=== PATIENT | male | born 2000 | race African-American/Black ===

== ENCOUNTER 2021-08-19 15:08 | Emergency (ER) | payer BC ==
[2021-08-19] MEDS ORDERED: Sodium Chloride 0.9% 10 ML Syringe FLUSH PRN (15:10)
[2021-08-19] MEDS ORDERED: Sodium Chloride 0.9% 2.5 ML Syringe FLUSH PRN (15:10)
[2021-08-19] MEDS ORDERED: Sodium Chloride 0.9% 1,000 ML IV ONE (15:10)
--- NOTE | 2021-08-19 15:13 | EDM.PDOC ---
ED HPI GENERAL MEDICAL PROBLEM - General Stated Complaint: CHEST PAIN Time Seen by Provider: 08/19/21 15:09 Source of Information: Reports: Patient History Limitations: Reports: No Limitations - History of Present Illness INITIAL COMMENTS - FREE TEXT/NARRATIVE: HISTORY AND PHYSICAL: History of present illness: Patient is a 21-year-old male who presents to the emergency room with complaints of left sided chest pain. He states he has had some dull intermittent spasms in his right chest/shoulder since he recovered from COVID-19 2 weeks ago. Patient states he had COVID-19 approximately 1 month ago, symptoms of myalgias, fatigue and generalized weakness. Quarantined for 2 weeks and since has felt improved. This morning at 0700 he was playing basketball when he developed left anterior chest pain that worsens with taking deep breaths, palpation, and movement of the neck/left shoulder. Patient denies any fever, chills, headache, change in vision, syncope or near syncope. Denies any back pain, shortness of breath or cough. Denies any abdominal pain, nausea, vomiting, diarrhea, constipation or dysuria. Has not noted any blood in urine or stool. Patient has been eating and drinking appropriately. He denies any alcohol or drug use. Review of systems: As per history of present illness and below otherwise all systems reviewed and negative. Past medical history: As per history of present illness and as reviewed below otherwise noncontributory. Surgical history: As per history of present illness and as reviewed below otherwise noncontributory. Social history: See social history for further information Family history: As per history of present illness and as reviewed below otherwise noncontributory. Physical exam: General: Well developed and well nourished 21 year old black male. Alert and orientated x 3. Nontoxic in appearance and in no acute distress. Vital signs are stable and have been reviewed by me. Nursing notes were reviewed. HEENT: Atraumatic, normocephalic, pupils equal and reactive bilaterally, negative for conjunctival pallor or scleral icterus, mucous membranes moist, trachea midline. No drooling or trismus noted. No meningeal signs. No hot potato voice noted. Lungs: Clear to auscultation bilaterally. No wheezes, rales, or rhonchi. Chest tender and pain is reproducible. Normal work of breathing, no accessory muscles used. Heart: S1S2, regular rate and rhythm without overt murmur, gallops, or rubs. No JVD. No peripheral edema Abdomen: Soft, nondistended, nontender. Negative for masses or costovertebral tenderness. Skin: Intact, warm, dry. No lesions or rashes noted. Hematologic: No petechiae or purpra. Mucosa appropriate color and normal nail bed color and refill. Extremities: Atraumatic, moves all extremities per self without difficulty or deficits, negative for cords or calf pain. Neurovascular unremarkable. Neuro: Awake, alert, oriented. Cranial nerves II through XII unremarkable. Cerebellum unremarkable. Motor and sensory unremarkable throughout. Exam nonfocal. Psychiatric: Mood and affect are appropriate. Normal thought process. Answering questions appropriately. Please note that the patient was seen and evaluated during the 2019 SARS-CoV-2 novel coronavirus pandemic period. Community viral transmission is ongoing at time of this encounter and the emergency department is operating under pandemic response procedures. Medical Decision Making: Patient is a 21 year old male who presents to the ED with chest pain that started at 0700 today while playing basketball. Pain is exacerbated with movement, deep breathes and palpation he states he has had mild chest spasms since recovering from COVID 2 weeks ago. He states he was adopted, unsure of his full health history, but has been healthy without medical problems. Patients vital signs are within normal limits. He has increased pain with any type of movement. Will do chest x-ray, EKG and cardiac work-up. EKG shows some ST elevated concerning for pericarditis. Toradol and NS given. Dr Contreras was directly involved in this case with me. Chest x-ray is unremarkable. Patient's troponin is elevated; unconcerning for ischemia. Will repeat a troponin at 2 hour mio and get a CT of the chest due to his recent COVID and current complaints. Repeat troponin has come down. CT chest with angiograph shows no pulmonary artery filling defects (no PE). Normal heart size with no pericardial fluid or mediastinal adenopathy. No pulmonary consolidation. No nodules or pleural fluid. Minimal focal area of emphysema in the right lower lobe. I did speak with Dr. Mohamud, exploration driller at [facility] about this patient's ER visit, lab values (troponins), chest CT, chest x-ray and recent illness. He agrees that this patient sounds like pericarditis and is safe to be discharged to home with close follow-up with his primary care provider and/or exploration driller. I have talked with the patient about today's findings, in addition to providing specific details for plan of care. Reassessment at the time of disposition demonstrates that the patient is in no acute distress. Patient is pain-free at this time. The patient is stable for discharge, counseling was provided and we discussed in great detail signs and symptoms that would prompt them to return to the Emergency Department. We did put him on the follow-up list with cardiology and give follow-up phone numbers to him and his significant other at bedside. Medication, follow up and supportive care measures were reviewed and discussed. Voices understanding and is agreeable to plan of care. Denies any further questions or concerns at this time. Diagnostics: CBC, CMP, Troponin, EKG, CXR Therapeutics: IV fluids, Toradol Prescription: Ibuprofen Impression: Pericarditis Plan: 1. You were evaluated today on an emergent basis. Your labs and imaging show inflammation of the pericardium. I would like you to continue monitoring your symptoms closely and follow-up with your primary care provider next week for reevaluation. They may want to do echocardiogram for further cardiac work-up if symptoms continue. 2. Please take Ibuprofen routinely over the next week. Take Ibuprofen 600mg with food three times daily. 3. If your symptoms should worsen, new symptoms develop or any of the signs and symptoms we discussed should arise please return to the emergency room or call 911 (if needed). Definitive disposition and diagnosis as appropriate pending reevaluation and review of above. Bilateral Chest Pain Score (Numeric/FACES): 10 - Related Data Allergies Allergy/AdvReac Type Severity Reaction Status Date / Time iodine Allergy Cannot Verified 08/19/21 15:13 Remember Home Meds: Home Meds Ibuprofen [Ibu] 600 mg PO TID PRN #30 tablet 08/19/21 [Rx] Magnesium 1 dose PO DAILY 08/19/21 [History] ED ROS GENERAL - Review of Systems Review Of Systems: Comprehensive ROS is negative, except as noted in HPI. ED EXAM, GENERAL - Physical Exam Exam: See Below (See dictation) Course - Vital Signs Last Recorded V/S: Last Vital Signs Temp 98.2 F 08/19/21 15:14 Pulse 64 08/19/21 16:35 Resp 17 08/19/21 16:35 BP 107/62 08/19/21 16:35 Pulse Ox 100 08/19/21 16:35 - Orders/Labs/Meds Orders: Active Orders 24 hr Category Date Time Status Sodium Chloride 0.9% [Saline Flush] Med 08/19/21 15:10 Active 10 ml FLUSH ASDIRECTED PRN Sodium Chloride 0.9% [Saline Flush] Med 08/19/21 15:10 Active 2.5 ml FLUSH ASDIRECTED PRN Saline Lock Insert [OM.PC] Stat Oth 08/19/21 15:10 Ordered Medication Orders Sodium Chloride (Sodium Chloride 0.9% 10 Ml Syringe) 10 ml FLUSH ASDIRECTED PRN PRN Reason: Keep Vein Open Last Admin: 08/19/21 15:40 Dose: 10 ml Documented by: JERALD Sodium Chloride (Sodium Chloride 0.9% 2.5 Ml Syringe) 2.5 ml FLUSH ASDIRECTED PRN PRN Reason: Keep Vein Open Last Admin: 08/19/21 15:40 Dose: 2.5 ml Documented by: JERALD Labs: Laboratory Tests 08/19/21 08/19/21 08/19/21 Range/Units 15:35 15:35 15:35 WBC 10.10 (4.0-11.0) K/uL RBC 4.81 (4.50-5.90) M/uL Hgb 13.2 (13.0-17.0) g/dL Hct 37.9 L (38.0-50.0) % MCV 78.8 L (80.0-98.0) fL MCH 27.4 (27.0-32.0) pg MCHC 34.8 (31.0-37.0) g/dL RDW Std Deviation 38.3 (28.0-62.0) fl RDW Coeff of Neo 13 (11.0-15.0) % Plt Count 192 (150-400) K/uL MPV 10.20 (7.40-12.00) fL Neut % (Auto) 69.0 (48.0-80.0) % Lymph % (Auto) 18.9 (16.0-40.0) % Callahan % (Auto) 5.3 (0.0-15.0) % Eos % (Auto) 6.7 (0.0-7.0) % Baso % (Auto) 0.1 (0.0-1.5) % Neut # (Auto) 7.0 H (1.4-5.7) K/uL Lymph # (Auto) 1.9 (0.6-2.4) K/uL Callahan # (Auto) 0.5 (0.0-0.8) K/uL Eos # (Auto) 0.7 (0.0-0.7) K/uL Baso # (Auto) 0.0 (0.0-0.1) K/uL Nucleated RBC % 0.0 /100WBC Nucleated RBCs # 0 K/uL ESR 4 (0-14) mm/hr Sodium 139 (136-148) mmol/L Potassium 4.6 (3.5-5.1) mmol/L Chloride 104 (98-107) mmol/L Carbon Dioxide 26.2 (21.0-32.0) mmol/L BUN 19 H (7.0-18.0) mg/dL Creatinine 1.5 H (0.8-1.3) mg/dL Est Cr Clr Drug Dosing 67.90 mL/min Estimated GFR (MDRD) > 60.0 ml/min Glucose 106 (74-106) mg/dL Calcium 9.7 (8.5-10.1) mg/dL Magnesium (1.8-2.4) mg/dL Total Bilirubin 0.6 (0.2-1.0) mg/dL AST 29 (15-37) IU/L ALT 39 (14-63) IU/L Alkaline Phosphatase 72 (46-116) U/L Troponin I 0.066 H* (0.000-0.056) ng/mL C-Reactive Protein (0.00-0.90) mg/dL Total Protein 8.1 (6.4-8.2) g/dL Albumin 4.2 (3.4-5.0) g/dL Globulin 3.9 (2.6-4.0) g/dL Albumin/Globulin Ratio 1.1 (0.9-1.6) TSH, Ultra Sensitive (0.36-3.74) uIU/mL Urine Color Urine Appearance Urine pH (5.0-8.0) Ur Specific Carver (1.001-1.035) Urine Protein (NEGATIVE) mg/dL Urine Glucose (UA) (NEGATIVE) mg/dL Urine Ketones (NEGATIVE) mg/dL Urine Occult Blood (NEGATIVE) Urine Nitrite (NEGATIVE) Urine Bilirubin (NEGATIVE) Urine Urobilinogen (<2.0) EU/dL Ur Leukocyte Esterase (NEGATIVE) Urine Opiates Screen (NEGATIVE) Ur Oxycodone Screen (NEGATIVE) Urine Methadone Screen (NEGATIVE) Ur Barbiturates Screen (NEGATIVE) Ur Phencyclidine Scrn (NEGATIVE) Ur Amphetamine Screen (NEGATIVE) U Methamphetamines Scrn (NEGATIVE) U Benzodiazepines Scrn (NEGATIVE) U Cocaine Metab Screen (NEGATIVE) U Marijuana (THC) Screen (NEGATIVE) 08/19/21 08/19/21 08/19/21 Range/Units 15:35 15:35 17:00 WBC (4.0-11.0) K/uL RBC (4.50-5.90) M/uL Hgb (13.0-17.0) g/dL Hct (38.0-50.0) % MCV (80.0-98.0) fL MCH (27.0-32.0) pg MCHC (31.0-37.0) g/dL RDW Std Deviation (28.0-62.0) fl RDW Coeff of Neo (11.0-15.0) % Plt Count (150-400) K/uL MPV (7.40-12.00) fL Neut % (Auto) (48.0-80.0) % Lymph % (Auto) (16.0-40.0) % Callahan % (Auto) (0.0-15.0) % Eos % (Auto) (0.0-7.0) % Baso % (Auto) (0.0-1.5) % Neut # (Auto) (1.4-5.7) K/uL Lymph # (Auto) (0.6-2.4) K/uL Callahan # (Auto) (0.0-0.8) K/uL Eos # (Auto) (0.0-0.7) K/uL Baso # (Auto) (0.0-0.1) K/uL Nucleated RBC % /100WBC Nucleated RBCs # K/uL ESR (0-14) mm/hr Sodium (136-148) mmol/L Potassium (3.5-5.1) mmol/L Chloride (98-107) mmol/L Carbon Dioxide (21.0-32.0) mmol/L BUN (7.0-18.0) mg/dL Creatinine (0.8-1.3) mg/dL Est Cr Clr Drug Dosing mL/min Estimated GFR (MDRD) ml/min Glucose (74-106) mg/dL Calcium (8.5-10.1) mg/dL Magnesium 2.1 (1.8-2.4) mg/dL Total Bilirubin (0.2-1.0) mg/dL AST (15-37) IU/L ALT (14-63) IU/L Alkaline Phosphatase (46-116) U/L Troponin I (0.000-0.056) ng/mL C-Reactive Protein <0.20 (0.00-0.90) mg/dL Total Protein (6.4-8.2) g/dL Albumin (3.4-5.0) g/dL Globulin (2.6-4.0) g/dL Albumin/Globulin Ratio (0.9-1.6) TSH, Ultra Sensitive 0.85 (0.36-3.74) uIU/mL Urine Color YELLOW Urine Appearance CLEAR Urine pH 6.0 (5.0-8.0) Ur Specific Carver >= 1.030 (1.001-1.035) Urine Protein NEGATIVE (NEGATIVE) mg/dL Urine Glucose (UA) NEGATIVE (NEGATIVE) mg/dL Urine Ketones 15 H (NEGATIVE) mg/dL Urine Occult Blood NEGATIVE (NEGATIVE) Urine Nitrite NEGATIVE (NEGATIVE) Urine Bilirubin NEGATIVE (NEGATIVE) Urine Urobilinogen 0.2 (<2.0) EU/dL Ur Leukocyte Esterase NEGATIVE (NEGATIVE) Urine Opiates Screen (NEGATIVE) Ur Oxycodone Screen (NEGATIVE) Urine Methadone Screen (NEGATIVE) Ur Barbiturates Screen (NEGATIVE) Ur Phencyclidine Scrn (NEGATIVE) Ur Amphetamine Screen (NEGATIVE) U Methamphetamines Scrn (NEGATIVE) U Benzodiazepines Scrn (NEGATIVE) U Cocaine Metab Screen (NEGATIVE) U Marijuana (THC) Screen (NEGATIVE) 08/19/21 08/19/21 Range/Units 17:00 17:15 WBC (4.0-11.0) K/uL RBC (4.50-5.90) M/uL Hgb (13.0-17.0) g/dL Hct (38.0-50.0) % MCV (80.0-98.0) fL MCH (27.0-32.0) pg MCHC (31.0-37.0) g/dL RDW Std Deviation (28.0-62.0) fl RDW Coeff of Neo (11.0-15.0) % Plt Count (150-400) K/uL MPV (7.40-12.00) fL Neut % (Auto) (48.0-80.0) % Lymph % (Auto) (16.0-40.0) % Callahan % (Auto) (0.0-15.0) % Eos % (Auto) (0.0-7.0) % Baso % (Auto) (0.0-1.5) % Neut # (Auto) (1.4-5.7) K/uL Lymph # (Auto) (0.6-2.4) K/uL Callahan # (Auto) (0.0-0.8) K/uL Eos # (Auto) (0.0-0.7) K/uL Baso # (Auto) (0.0-0.1) K/uL Nucleated RBC % /100WBC Nucleated RBCs # K/uL ESR (0-14) mm/hr Sodium (136-148) mmol/L Potassium (3.5-5.1) mmol/L Chloride (98-107) mmol/L Carbon Dioxide (21.0-32.0) mmol/L BUN (7.0-18.0) mg/dL Creatinine (0.8-1.3) mg/dL Est Cr Clr Drug Dosing mL/min Estimated GFR (MDRD) ml/min Glucose (74-106) mg/dL Calcium (8.5-10.1) mg/dL Magnesium (1.8-2.4) mg/dL Total Bilirubin (0.2-1.0) mg/dL AST (15-37) IU/L ALT (14-63) IU/L Alkaline Phosphatase (46-116) U/L Troponin I 0.056 (0.000-0.056) ng/mL C-Reactive Protein (0.00-0.90) mg/dL Total Protein (6.4-8.2) g/dL Albumin (3.4-5.0) g/dL Globulin (2.6-4.0) g/dL Albumin/Globulin Ratio (0.9-1.6) TSH, Ultra Sensitive (0.36-3.74) uIU/mL Urine Color Urine Appearance Urine pH (5.0-8.0) Ur Specific Carver (1.001-1.035) Urine Protein (NEGATIVE) mg/dL Urine Glucose (UA) (NEGATIVE) mg/dL Urine Ketones (NEGATIVE) mg/dL Urine Occult Blood (NEGATIVE) Urine Nitrite (NEGATIVE) Urine Bilirubin (NEGATIVE) Urine Urobilinogen (<2.0) EU/dL Ur Leukocyte Esterase (NEGATIVE) Urine Opiates Screen NEGATIVE (NEGATIVE) Ur Oxycodone Screen NEGATIVE (NEGATIVE) Urine Methadone Screen NEGATIVE (NEGATIVE) Ur Barbiturates Screen NEGATIVE (NEGATIVE) Ur Phencyclidine Scrn NEGATIVE (NEGATIVE) Ur Amphetamine Screen NEGATIVE (NEGATIVE) U Methamphetamines Scrn NEGATIVE (NEGATIVE) U Benzodiazepines Scrn NEGATIVE (NEGATIVE) U Cocaine Metab Screen NEGATIVE (NEGATIVE) U Marijuana (THC) Screen NEGATIVE (NEGATIVE) Meds: Medications Generic Name Dose Route Start Last Admin Trade Name Freq PRN Reason Stop Dose Admin Sodium Chloride 10 ml 08/19/21 15:10 08/19/21 15:40 Sodium Chloride 0.9% 10 Ml Syringe FLUSH 10 ml ASDIRECTED PRN Administration Keep Vein Open Sodium Chloride 2.5 ml 08/19/21 15:10 08/19/21 15:40 Sodium Chloride 0.9% 2.5 Ml Syringe FLUSH 2.5 ml ASDIRECTED PRN Administration Keep Vein Open Discontinued Medications Generic Name Dose Route Start Last Admin Trade Name Freq PRN Reason Stop Dose Admin Aspirin 324 mg 08/19/21 16:19 08/19/21 16:33 Aspirin 81 Mg Tab.Chew PO 08/19/21 16:20 324 mg ONETIME ONE Administration Sodium Chloride 1,000 mls @ 999 mls/hr 08/19/21 15:10 08/19/21 15:40 Normal Saline IV 08/19/21 16:10 999 mls/hr STAT ONE Administration Iopamidol 100 ml 08/19/21 17:44 08/19/21 17:44 Iopamidol 755 Mg/Ml 500 Ml Multipack Bottle IVPUSH 08/19/21 17:45 100 ml ONETIME STA Administration Ketorolac Tromethamine 30 mg 08/19/21 15:21 08/19/21 15:40 Ketorolac 30 Mg/Ml Sdv IVPUSH 08/19/21 15:22 30 mg ONETIME ONE Administration Morphine Sulfate 2 mg 08/19/21 17:56 08/19/21 19:01 Morphine 2 Mg/Ml Syringe IVPUSH 08/19/21 17:57 2 mg ONETIME ONE Administration Departure - Departure Time of Disposition: 18:56 Disposition: Home, Self-Care 01 Clinical Impression: Pericarditis Qualifiers: Pericarditis type: unspecified type Chronicity: acute Qualified Code(s): I30.9 - Acute pericarditis, unspecified - Discharge Information Prescriptions: Ibuprofen [Ibu] 600 mg PO TID PRN #30 tablet PRN Reason: Pain Instructions: Pericarditis Referrals: PCP,None [Primary Care Provider] - Forms: ED Department Discharge Additional Instructions: The following information is given to patients seen in the emergency department who are being discharged to home. This information is to outline your options for follow-up care. We provide all patients seen in our emergency department with a follow-up referral. The need for follow-up, as well as the timing and circumstances, are variable depending upon the specifics of your emergency department visit. If you don't have a primary care physician on staff, we will provide you with a referral. We always advise you to contact your personal physician following an emergency department visit to inform them of the circumstance of the visit and for follow-up with them and/or the need for any referrals to a consulting specialist. The emergency department will also refer you to a specialist when appropriate. This referral assures that you have the opportunity for follow-up care with a specialist. All of these measure are taken in an effort to provide you with optimal care, which includes your follow-up. Under all circumstances we always encourage you to contact your private physician who remains a resource for coordinating your care. When calling for follow-up care, please make the office aware that this follow-up is from your recent emergency room visit. If for any reason you are refused follow-up, please contact the [facility] Emergency Department at and asked to speak to the emergency department charge nurse. [facility] [address] [place] [address] [facility] [address] [place] [address] Thank you for choosing the [facility] emergency department in [place] for your medical needs today. It was a pleasure caring for you. Today you were seen in the emergency department for chest pain. 1. You were evaluated today on an emergent basis. Your labs and imaging show inflammation of the pericardium. I would like you to continue monitoring your symptoms closely and follow-up with your primary care provider next week for reevaluation. They may want to do echocardiogram for further cardiac work-up if symptoms continue. 2. Please take Ibuprofen routinely over the next week. Take Ibuprofen 600mg with food three times daily. 3. If your symptoms should worsen, new symptoms develop or any of the signs and symptoms we discussed should arise please return to the emergency room or call 911 (if needed). Sepsis Event Note (ED) - Focused Exam Vital Signs: Vital Signs Temp Pulse Resp BP Pulse Ox 08/19/21 16:35 64 17 107/62 100 08/19/21 15:14 98.2 F 62 16 118/69 99 - My Orders Last 24 Hours: My Active Orders 08/19/21 15:10 Sodium Chloride 0.9% [Saline Flush] 10 ml FLUSH ASDIRECTED PRN Sodium Chloride 0.9% [Saline Flush] 2.5 ml FLUSH ASDIRECTED PRN Saline Lock Insert [OM.PC] Stat - Assessment/Plan Last 24 Hours: My Active Orders 08/19/21 15:10 Sodium Chloride 0.9% [Saline Flush] 10 ml FLUSH ASDIRECTED PRN Sodium Chloride 0.9% [Saline Flush] 2.5 ml FLUSH ASDIRECTED PRN Saline Lock Insert [OM.PC] Stat
[2021-08-19] MEDS ORDERED: Ketorolac 30 MG/ML SDV IVPUSH ONE (15:21)
--- NOTE | 2021-08-19 16:06 | PCM.EKG ---
#1 Interpretation EKG Date: 08/19/21 Time: 16:06 EKG Interpretation Comments: Sinus rhythm with rate of 66 normal intervals and axis there is minimal diffuse ST elevation throughout all leads consistent with pericarditis not concerning for acute ischemia
[2021-08-19 16:14] LABS: BLOOD UREA NITROGEN,BUN 19 mg/dL (7.0-18.0); CARBON DIOXIDE,CO2 26.2 mmol/L (21.0-32.0); CHLORIDE,CL 104 mmol/L (98-107); GLUCOSE RANDOM 106 mg/dL (74-106); POTASSIUM,K 4.6 mmol/L (3.5-5.1); SODIUM,NA 139 mmol/L (136-148)
[2021-08-19] MEDS ORDERED: Aspirin 81 MG Tab.Chew PO ONE (16:19)
--- NOTE | 2021-08-19 16:26 | CR ---
INDICATION: Chest pain. TECHNIQUE: Chest 1 view. COMPARISON: None FINDINGS: Cardiovascular and mediastinum: Heart size and vasculature are normal in caliber and appearance. Mediastinum is within normal limits. Lungs and pleural space: Lungs are clear. No sign of infiltrate or mass. No sign of pleural effusion. No pneumothorax. Bones and soft tissues: No significant findings. IMPRESSION: Unremarkable chest. Dictated by Kenn Norwood MD @ 08/19/2021 4:26:08 PM (Electronically Signed)
[2021-08-19] MEDS ORDERED: Iopamidol 755 MG/ML 500 ML Multipack Bottle IVPUSH STA (17:44)
[2021-08-19] MEDS ORDERED: Morphine 2 MG/ML SYRINGE IVPUSH ONE (17:56)
--- NOTE | 2021-08-19 18:20 | CT ---
INDICATION: Chest pain TECHNIQUE : CT scan of the chest. CTA PE protocol. IV contrast. 100 cc Isovue intravenous FINDINGS: Pulmonary arteries:No pulmonary artery filling defects. Heart/mediastinum:Normal heart size with no pericardial fluid or mediastinal adenopathy. Lungs and pleura:No pulmonary consolidation. No nodules or pleural fluid. Minimal focal area of emphysema in the right lower lobe. Abdomen/skeletal:Unremarkable. IMPRESSION: 1. No signs for acute pulmonary embolus. 2. Nonspecific subsegmental area of incidental emphysema in the right lower lobe possibly developmental or congenital. Doubtful clinical significance. Please note that all CT scans at this facility use dose modulation, iterative reconstruction, and/or weight-based dosing when appropriate to reduce radiation dose to as low as reasonably achievable. Dictated by Jayant Urbano MD @ 08/19/2021 6:17:47 PM (Electronically Signed)
--- NOTE | 2021-08-19 18:32 | PCM.EKG ---
#1 Interpretation EKG Date: 08/19/21 Time: 18:31 EKG Interpretation Comments: Sinus rhythm rate of 66 ST elevation diffuse suggests acute pericarditis.
== END 2021-08-19 19:10 | disposition home or self-care (01) ==
LOC: MW.ED 15:08
DX: I30.9 Acute pericarditis, unspecified (principal); Z88.8 Allergy status to other drugs, medicaments and biological substances
CPT/HCPCS: 36415; 71045; 71275; 80053; 80305; 81003; 83735; 84443; 84484; 85025; 85652; 86140; 93005; 96374; 96375; 99285; A9270; J1885; J2270; J7030; Q9967

== ENCOUNTER 2021-11-25 20:27 | Emergency (ER) | payer BC ==
--- NOTE | 2021-11-25 20:29 | EDM.PDOC ---
ED HPI GENERAL MEDICAL PROBLEM - General Stated Complaint: CHEST PAIN Time Seen by Provider: 11/25/21 20:27 Source of Information: Reports: Patient History Limitations: Reports: No Limitations - History of Present Illness INITIAL COMMENTS - FREE TEXT/NARRATIVE: 21-year-old male past medical history Covid infection roughly 4 months ago, pericarditis 3 months ago presents for chest pain. Patient notes that he came to the emergency department in August of this year and was diagnosed with pericarditis. Patient had elevated troponins at that time. He followed up with a double end sewer in [place] and had extensive work-up including multiple EKGs, echocardiogram, multiple office visits. He was put on a medication and has been taking it but does not note improvement over the last several months. He states that nobody can tell him what is wrong. He notes that this evening roughly 2 hours prior to arrival his chest pain worsened. His pain is in his left anterior chest rating into his left torso and left upper back. It is not associated with shortness of breath. It is not pleuritic. Nothing makes it better or worse. Patient notes he was prescribed colchicine but as it was not working well, he is not very compliant with taking it. He has been taking motrin 800mg PRN for his pain with last dose around 5PM today. Chest Pain Score (Numeric/FACES): 8 - Related Data Allergies Allergy/AdvReac Type Severity Reaction Status Date / Time iodine Allergy Cannot Verified 11/25/21 20:44 Remember Home Meds: Home Meds Ibuprofen [Ibu] 600 mg PO TID PRN #30 tablet 08/19/21 [Rx] Colchicine 11/25/21 [History] Past Medical History - Past Health History Medical/Surgical History: Denies Medical/Surgical History ED ROS GENERAL - Review of Systems Review Of Systems: Comprehensive ROS is negative, except as noted in HPI. ED EXAM, GENERAL - Physical Exam Exam: See Below Exam Limited By: No Limitations General Appearance: Alert, WD/WN, No Apparent Distress Ears: Hearing Grossly Normal Throat/Mouth: Normal Voice, No Airway Compromise Head: Atraumatic, Normocephalic Respiratory/Chest: No Respiratory Distress, Lungs Clear, Normal Breath Sounds, No Accessory Muscle Use Cardiovascular: Normal Peripheral Pulses, Regular Rate, Rhythm Extremities: Normal Inspection, No Pedal Edema Neurological: Alert, Normal Cognition, Normal Gait Psychiatric: Normal Affect, Normal Mood Skin Exam: Warm, Dry, Intact, Normal Color #1 Interpretation EKG Date: 11/25/21 Time: 20:27 Rhythm: NSR Rate (Beats/Min): 62 [place]: Normal P-Wave: Present QRS: Normal ST-T: Normal QT: Normal WI/PQ Interval: 128 Comparison: Change From Previous EKG EKG Interpretation Comments: NSR rate of 62bpm, TWI lead V3, V4, V5, V6, I, II, III, otherwise unremarkable Course - Vital Signs Last Recorded V/S: Last Vital Signs Temp 97.2 F 11/25/21 20:32 Pulse 64 11/25/21 20:32 Resp 20 11/25/21 20:32 BP 102/83 11/25/21 20:32 Pulse Ox 100 11/25/21 20:32 - Orders/Labs/Meds Orders: Active Orders 24 hr Category Date Time Status Saline Lock Insert [OM.PC] Stat Oth 11/25/21 20:38 Ordered Labs: Laboratory Tests 11/25/21 11/25/21 11/25/21 Range/Units 20:20 20:36 20:36 WBC 5.16 (4.0-11.0) K/uL RBC 4.91 (4.50-5.90) M/uL Hgb 13.8 (13.0-17.0) g/dL Hct 39.7 (38.0-50.0) % MCV 80.9 (80.0-98.0) fL MCH 28.1 (27.0-32.0) pg MCHC 34.8 (31.0-37.0) g/dL RDW Std Deviation 39.3 (28.0-62.0) fl RDW Coeff of Neo 13 (11.0-15.0) % Plt Count 181 (150-400) K/uL MPV 10.60 (7.40-12.00) fL Add Manual Diff YES Neutrophils % (Manual) 34 L (48.0-80.0) % Lymphocytes % (Manual) 45 H (16.0-40.0) % Monocytes % (Manual) 1 (0.0-15.0) % Eosinophils % (Manual) 20 H (0.0-7.0) % Nucleated RBC % 0.0 /100WBC Absolute Seg Neuts 1.8 (1.4-5.7) Lymphocytes # (Manual) 2.3 (0.6-2.4) Monocytes # (Manual) 0.1 (0.0-0.8) Eosinophils # (Manual) 1.0 H (0.0-0.7) Nucleated RBCs # 0 K/uL D-Dimer, Quantitative (0.0-0.50) mg/L FEU Sodium 142 (136-148) mmol/L Potassium 4.0 (3.5-5.1) mmol/L Chloride 104 (98-107) mmol/L Carbon Dioxide 29.5 (21.0-32.0) mmol/L BUN 17 (7.0-18.0) mg/dL Creatinine 1.2 (0.8-1.3) mg/dL Est Cr Clr Drug Dosing 89.83 mL/min Estimated GFR (MDRD) > 60.0 ml/min Glucose 80 (74-106) mg/dL Calcium 8.8 (8.5-10.1) mg/dL Troponin I < 0.050 (0.000-0.056) ng/mL C-Reactive Protein <0.20 (0.00-0.90) mg/dL SARS-CoV-2 RNA (RUSTY) NEGATIVE (NEGATIVE) 11/25/21 Range/Units 20:36 WBC (4.0-11.0) K/uL RBC (4.50-5.90) M/uL Hgb (13.0-17.0) g/dL Hct (38.0-50.0) % MCV (80.0-98.0) fL MCH (27.0-32.0) pg MCHC (31.0-37.0) g/dL RDW Std Deviation (28.0-62.0) fl RDW Coeff of Neo (11.0-15.0) % Plt Count (150-400) K/uL MPV (7.40-12.00) fL Add Manual Diff Neutrophils % (Manual) (48.0-80.0) % Lymphocytes % (Manual) (16.0-40.0) % Monocytes % (Manual) (0.0-15.0) % Eosinophils % (Manual) (0.0-7.0) % Nucleated RBC % /100WBC Absolute Seg Neuts (1.4-5.7) Lymphocytes # (Manual) (0.6-2.4) Monocytes # (Manual) (0.0-0.8) Eosinophils # (Manual) (0.0-0.7) Nucleated RBCs # K/uL D-Dimer, Quantitative 1.82 H (0.0-0.50) mg/L FEU Sodium (136-148) mmol/L Potassium (3.5-5.1) mmol/L Chloride (98-107) mmol/L Carbon Dioxide (21.0-32.0) mmol/L BUN (7.0-18.0) mg/dL Creatinine (0.8-1.3) mg/dL Est Cr Clr Drug Dosing mL/min Estimated GFR (MDRD) ml/min Glucose (74-106) mg/dL Calcium (8.5-10.1) mg/dL Troponin I (0.000-0.056) ng/mL C-Reactive Protein (0.00-0.90) mg/dL SARS-CoV-2 RNA (RUSTY) (NEGATIVE) Meds: Medications Discontinued Medications Generic Name Dose Route Start Last Admin Trade Name Freq PRN Reason Stop Dose Admin Aspirin 324 mg 11/25/21 20:44 11/25/21 20:49 Aspirin 81 Mg Tab.Chew PO 11/25/21 20:45 324 mg ONETIME ONE Administration Famotidine 20 mg 11/25/21 20:38 11/25/21 20:46 Famotidine 20 Mg/2 Ml Sdv IVPUSH 11/25/21 20:39 20 mg ONETIME ONE Administration Iopamidol 100 ml 11/25/21 23:02 11/25/21 23:04 Iopamidol 755 Mg/Ml 500 Ml Multipack Bottle IVPUSH 11/25/21 23:03 100 ml ONETIME STA Administration - Re-Assessments/Exams Free Text/Narrative Re-Assessment/Exam: 11/25/21 20:41 Will get labs including troponin and D-dimer; will trial pepcid as patient may have gastritis from prolonged NSAID use. Will give aspirin 325mg in case this is cardiac etiology of pain. 11/25/21 21:38 D-dimer is markedly elevated. Will get CT PE study. 11/25/21 21:42 Patient is actually feeling a lot better after aspirin and pepcid. 11/26/21 00:32 CT PE study is negative. Will discharge with a course of Pepcid and recommend cardiology follow-up. Departure - Departure Time of Disposition: 00:33 Disposition: Home, Self-Care 01 Condition: Good Clinical Impression: Chest pain Qualifiers: Chest pain type: unspecified Qualified Code(s): R07.9 - Chest pain, unspecified - Discharge Information Instructions: Nonspecific Chest Pain, Adult Referrals: Samuel Irvin MD [Primary Care Provider] - Additional Instructions: Your labs and emergency department work-up were unremarkable. I did prescribe a medication called Protonix which can help with stomach acid. See if this helps with your symptoms. Definitely follow-up with double end sewer. Information for a local double end sewer is provided below if you would rather see him than the one that you have been following up with. [facility] [address] [place] [id number] The following information is given to patients seen in the emergency department who are being discharged to home. This information is to outline your options for follow-up care. We provide all patients seen in our emergency department with a follow-up referral. The need for follow-up, as well as the timing and circumstances, are variable depending upon the specifics of your emergency department visit. If you don't have a primary care physician on staff, we will provide you with a referral. We always advise you to contact your personal physician following an emergency department visit to inform them of the circumstance of the visit and for follow-up with them and/or the need for any referrals to a consulting specialist. The emergency department will also refer you to a specialist when appropriate. This referral assures that you have the opportunity for follow-up care with a specialist. All of these measure are taken in an effort to provide you with optimal care, which includes your follow-up. Under all circumstances we always encourage you to contact your private physician who remains a resource for coordinating your care. When calling for follow-up care, please make the office aware that this follow-up is from your recent emergency room visit. If for any reason you are refused follow-up, please contact the [facility] at and asked to speak to the emergency department charge nurse. Please follow up with your primary care physician. If you do not have a primary care physician, see below: [facility] [address], [place] [id number] [facility] [address] [place], [place] [phone] [facility] [address] [place] [address] Sepsis Event Note (ED) - Focused Exam Vital Signs: Vital Signs Temp Pulse Resp BP Pulse Ox 11/25/21 20:32 97.2 F 64 20 102/83 100 - My Orders Last 24 Hours: My Active Orders 11/25/21 20:38 Saline Lock Insert [OM.PC] Stat - Assessment/Plan Last 24 Hours: My Active Orders 11/25/21 20:38 Saline Lock Insert [OM.PC] Stat
[2021-11-25] MEDS ORDERED: Famotidine 20 MG/2 ML SDV IVPUSH ONE (20:38)
[2021-11-25] MEDS ORDERED: Aspirin 81 MG Tab.Chew PO ONE (20:44)
[2021-11-25 21:11] LABS: BLOOD UREA NITROGEN,BUN 17 mg/dL (7.0-18.0); CARBON DIOXIDE,CO2 29.5 mmol/L (21.0-32.0); CHLORIDE,CL 104 mmol/L (98-107); GLUCOSE RANDOM 80 mg/dL (74-106); SODIUM,NA 142 mmol/L (136-148)
--- NOTE | 2021-11-25 21:28 | CR ---
INDICATION: Chest pain TECHNIQUE: Two view chest. FINDINGS: The lungs are clear. There is no evidence of pneumothorax. The heart, mediastinum and pulmonary vessels are of normal size. There is no evidence of pleural fluid. IMPRESSION: Negative chest. Dictated by Israel Corona MD @ 11/25/2021 9:25:53 PM (Electronically Signed)
[2021-11-25] MEDS ORDERED: Iopamidol 755 MG/ML 500 ML Multipack Bottle IVPUSH STA (23:02)
--- NOTE | 2021-11-25 23:50 | CT ---
INDICATION: Rule out PE, elevated D-dimer. COMPARISON: Chest radiograph 11/25/2021. CT chest 08/19/2021. TECHNIQUE: CT of the chest with 100 cc of Isovue 370 IV contrast. Coronal and sagittal reconstructions. 3D post processing was performed. FINDINGS: Normal heart size. Normal caliber thoracic aorta and central pulmonary arteries. Negative for acute pulmonary embolism. No pericardial effusion. Residual thymic tissue in the anterior mediastinum. No mediastinal or hilar lymphadenopathy. Multiple small bilateral axillary lymph nodes are likely reactive. No focal consolidation, pleural effusion, or pneumothorax. Resolution of previously seen area of mosaic attenuation in the superior segment of the right lower lobe. No pulmonary nodules identified. No central endobronchial lesion or bronchial wall thickening. The imaged thyroid gland is normal in appearance. The visualized upper abdomen is unremarkable. The bones are unremarkable. IMPRESSION: 1. Negative for acute pulmonary embolism. 2. No other acute findings in the chest. Please note that all CT scans at this facility use dose modulation, iterative reconstruction, and/or weight-based dosing when appropriate to reduce radiation dose to as low as reasonably achievable. Dictated by Valeria Monson MD @ 11/25/2021 11:48:26 PM (Electronically Signed)
== END 2021-11-26 00:53 | disposition home or self-care (01) ==
LOC: MW.ED 20:27
DX: R07.9 Chest pain, unspecified (principal); Z91.041 Radiographic dye allergy status; Z20.822 Contact with and (suspected) exposure to COVID-19
CPT/HCPCS: 36415; 71045; 71275; 80048; 84484; 85025; 85379; 86140; 87635; 93005; 96374; 99285; A9270; J3490; Q9967; U0002

== ENCOUNTER 2022-08-04 12:52 | Emergency (ER) | payer BC ==
[2022-08-04] MEDS ORDERED: Ondansetron 4 MG Tab.DIS PO ONE (13:53)
== END 2022-08-04 15:00 | disposition home or self-care (01) ==
LOC: MW.ED 12:52
DX: R51.9 Headache, unspecified (principal); Z20.822 Contact with and (suspected) exposure to COVID-19; Z91.041 Radiographic dye allergy status
CPT/HCPCS: 87635; 99284; A9270; U0002

== ENCOUNTER 2022-09-11 06:00 | Day surgery (SDC) | payer OTHER, BC ==
[2022-09-11] MEDS ORDERED: fentaNYL 100 MCG/2 ML SDV ONE (07:29)
[2022-09-11] MEDS ORDERED: Lidocaine 2% 5 ML SDV ONE (07:29)
[2022-09-11] MEDS ORDERED: Propofol 200 MG/20 ML SDV ONE (07:29)
[2022-09-11] MEDS ORDERED: Dexmedetomidine 200 MCG/2 ML SDV ONE (10:27)
[2022-09-11] MEDS ORDERED: Lactated Ringers 1,000 ML IV ONE (10:30)
[2022-09-11] MEDS ORDERED: Glycopyrrolate 0.2 MG/ML SDV ONE (10:46)
== END 2022-09-11 12:40 ==
LOC: MW.SDS 06:00
PROVIDERS: ATTEND Surgery
DX: R19.4 Change in bowel habit (principal); K64.3 Fourth degree hemorrhoids; G43.909 Migraine, unspecified, not intractable, without status migrainosus; Z88.8 Allergy status to other drugs, medicaments and biological substances; Z79.899 Other long term (current) drug therapy
CPT/HCPCS: 45380; J2704; J3010; J3490; J7120; 00811

== ENCOUNTER 2024-06-30 01:03 | Emergency (ER) | payer SELFPAY ==
[2024-06-30] MEDS: Ketorolac 30 MG/ML SDV IM ONE (01:38)
[2024-06-30 01:47] LABS: BASOPHILS ABSOLUTE AUTO 0.03 K/uL (0.00-0.20); BASOPHILS PERCENT AUTO 0.4 % (0.0-1.0); EOSINOPHILS ABSOLUTE AUTO 0.81 K/uL (0.00-0.45); EOSINOPHILS PERCENT AUTO 11.8 % (0.0-6.0); HEMATOCRIT 40.4 % (42.0-52.0); HEMOGLOBIN 13.9 g/dL (14.0-18.0); IMMATURE GRAN ABSOLUTE AUTO 0.03 K/uL (0.00-0.05); IMMATURE GRAN PERCENT AUTO 0.4 % (0.0-0.4); LYMPHOCYTES ABSOLUTE AUTO 2.25 K/uL (1.00-4.80); LYMPHOCYTES PERCENT AUTO 32.7 % (24.0-44.0); MEAN CORPUSCULAR HEMOGLOBIN 27.9 pg (28.0-32.0); MEAN CORPUSCULAR HGB CONC 34.4 g/dL (32.0-36.0); MEAN CORPUSCULAR VOLUME 81.1 fL (83.0-99.0); MEAN PLATELET VOLUME 10.7 fL (9.4-12.4); MONOCYTES ABSOLUTE AUTO 0.46 K/uL (0.00-0.80); MONOCYTES PERCENT AUTO 6.7 % (0.0-8.0); NEUTROPHILS ABSOLUTE AUTO 3.31 K/uL (1.80-7.70); PLATELET COUNT,PLT 193 K/uL (150-400); RED BLOOD CELL COUNT 4.98 M/uL (4.52-5.90); WHITE BLOOD CELL COUNT,WBC 6.89 K/uL (3.9-11.3)
[2024-06-30 02:15] LABS: A/G RATIO 1.1 (0.9-1.6); ALBUMIN 3.9 g/dL (3.4-5.0); BILIRUBIN TOTAL 0.6 mg/dL (0.2-1.0); CALCIUM 9.3 mg/dL (8.5-10.1); CARBON DIOXIDE,CO2 26.7 mmol/L (21.0-32.0); CREATININE 1.2 mg/dL (0.8-1.3); EST CRCL DRUG DOSING (CG) 87.54 mL/min; PROTEIN TOTAL,TP 7.6 g/dL (6.4-8.2)
== END 2024-06-30 02:49 | disposition home or self-care (01) ==
LOC: MW.ED 01:03
DX: R07.9 Chest pain, unspecified (principal); Z91.041 Radiographic dye allergy status; Z75.8 Other problems related to medical facilities and other health care
CPT/HCPCS: 36415; 71046; 80053; 84484; 85025; 93005; 96372; 99285; J1885; 93010; 99283

== ENCOUNTER 2024-07-02 11:13 | Emergency (ER) | payer OTHER ==
[2024-07-02 12:08] LABS: BASOPHILS ABSOLUTE AUTO 0.03 K/uL (0.00-0.20); BASOPHILS PERCENT AUTO 0.5 % (0.0-1.0); EOSINOPHILS ABSOLUTE AUTO 1.16 K/uL (0.00-0.45); EOSINOPHILS PERCENT AUTO 17.9 % (0.0-6.0); HEMATOCRIT 41.4 % (42.0-52.0); HEMOGLOBIN 14.3 g/dL (14.0-18.0); IMMATURE GRAN ABSOLUTE AUTO 0.01 K/uL (0.00-0.05); IMMATURE GRAN PERCENT AUTO 0.2 % (0.0-0.4); LYMPHOCYTES PERCENT AUTO 24.7 % (24.0-44.0); MEAN CORPUSCULAR HEMOGLOBIN 27.9 pg (28.0-32.0); MEAN CORPUSCULAR HGB CONC 34.5 g/dL (32.0-36.0); MEAN CORPUSCULAR VOLUME 80.9 fL (83.0-99.0); MEAN PLATELET VOLUME 10.4 fL (9.4-12.4); MONOCYTES ABSOLUTE AUTO 0.43 K/uL (0.00-0.80); MONOCYTES PERCENT AUTO 6.6 % (0.0-8.0); NEUTROPHILS ABSOLUTE AUTO 3.25 K/uL (1.80-7.70); NEUTROPHILS PERCENT AUTO 50.1 % (41.0-71.0); PLATELET COUNT,PLT 192 K/uL (150-400); RED BLOOD CELL COUNT 5.12 M/uL (4.52-5.90); WHITE BLOOD CELL COUNT,WBC 6.48 K/uL (3.9-11.3)
[2024-07-02 12:22] LABS: D-DIMER QUANTITATIVE 1.12 mg/L FEU (0.00-0.50); INR 1.06 (0.86-1.11)
[2024-07-02 12:30] LABS: APPEARANCE,URINE CLEAR; BILIRUBIN,URINE NEGATIVE (NEGATIVE); COLOR,URINE YELLOW; GLUCOSE,URINE NEGATIVE (NEGATIVE); KETONES,URINE NEGATIVE (NEGATIVE); LEUKOCYTE ESTERASE,URINE NEGATIVE (NEGATIVE); NITRITE,URINE NEGATIVE (NEGATIVE); OCCULT BLOOD,URINE NEGATIVE (NEGATIVE); PROTEIN,URINE NEGATIVE (NEGATIVE); UROBILINOGEN,URINE 0.2 EU/dL (<2.0)
[2024-07-02 12:37] LABS: BACTERIA,URINE RARE (NEGATIVE); EPITHELIAL CELLS,URINE RARE (NONE-FEW); RBC,URINE 0-1 (0-2/HPF); WBC,URINE 0-1 (0-5/HPF)
[2024-07-02 12:43] LABS: ALBUMIN 3.8 g/dL (3.4-5.0); BILIRUBIN TOTAL 0.5 mg/dL (0.2-1.0); CALCIUM 9.2 mg/dL (8.5-10.1); CREATININE 1.2 mg/dL (0.8-1.3); EST CRCL DRUG DOSING (CG) 87.54 mL/min; POTASSIUM,K 3.8 mmol/L (3.5-5.1); PROTEIN TOTAL,TP 7.5 g/dL (6.4-8.2)
[2024-07-02 12:47] LABS: CORONAVIRUS COVID-19 NAA NEGATIVE (NEGATIVE); INFLUENZA A NAA NEGATIVE (NEGATIVE); INFLUENZA B NAA NEGATIVE (NEGATIVE); RESPIRATORY SYNCYTIAL VIR NAA NEGATIVE (NEGATIVE)
[2024-07-02] MEDS: Iopamidol 755 MG/ML 500 ML Multipack Bottle IVPUSH STA ×2 (13:47)
[2024-07-02] MEDS: Sodium Chloride 0.9% 2.5 ML Syringe FLUSH PRN (14:18)
[2024-07-02] MEDS: Sodium Chloride 0.9% 10 ML Syringe FLUSH PRN (14:18)
== END 2024-07-02 15:14 | disposition home or self-care (01) ==
LOC: MW.ED 11:13
DX: R07.9 Chest pain, unspecified (principal); Z88.8 Allergy status to other drugs, medicaments and biological substances
CPT/HCPCS: 0241U; 36415; 71045; 71275; 80053; 81001; 83690; 84484; 85025; 85379; 85610; 93005; 99285; J3490; Q9967; 93010; 99284

== ENCOUNTER 2024-10-16 04:41 | Emergency (ER) | payer SELFPAY ==
[2024-10-16 04:57] LABS: BASOPHILS ABSOLUTE AUTO 0.05 K/uL (0.00-0.20); BASOPHILS PERCENT AUTO 0.5 % (0.0-1.0); HEMATOCRIT 41.9 % (42.0-52.0); HEMOGLOBIN 14.6 g/dL (14.0-18.0); IMMATURE GRAN ABSOLUTE AUTO 0.04 K/uL (0.00-0.05); IMMATURE GRAN PERCENT AUTO 0.4 % (0.0-0.4); LYMPHOCYTES ABSOLUTE AUTO 3.16 K/uL (1.00-4.80); LYMPHOCYTES PERCENT AUTO 33.5 % (24.0-44.0); MEAN CORPUSCULAR HEMOGLOBIN 28.6 pg (28.0-32.0); MEAN CORPUSCULAR HGB CONC 34.8 g/dL (32.0-36.0); MEAN CORPUSCULAR VOLUME 82.2 fL (83.0-99.0); MEAN PLATELET VOLUME 10.5 fL (9.4-12.4); MONOCYTES ABSOLUTE AUTO 0.59 K/uL (0.00-0.80); MONOCYTES PERCENT AUTO 6.3 % (0.0-8.0); NEUTROPHILS ABSOLUTE AUTO 3.98 K/uL (1.80-7.70); NEUTROPHILS PERCENT AUTO 42.3 % (41.0-71.0); PLATELET COUNT,PLT 187 K/uL (150-400); WHITE BLOOD CELL COUNT,WBC 9.42 K/uL (3.9-11.3)
[2024-10-16] MEDS: Ketorolac 30 MG/ML SDV IVPUSH ONE (05:06)
[2024-10-16] MEDS: Dexamethasone 4 MG/ML SDV IVPUSH ONE (05:06)
[2024-10-16] MEDS: Sodium Chloride 0.9% 10 ML Syringe FLUSH PRN (05:06)
[2024-10-16 05:30] LABS: ALBUMIN 3.8 g/dL (3.4-5.0); BILIRUBIN TOTAL 0.4 mg/dL (0.2-1.0); CARBON DIOXIDE,CO2 31.2 mmol/L (21.0-32.0); CREATININE 1.4 mg/dL (0.8-1.3); EST CRCL DRUG DOSING (CG) 78.04 mL/min; MAGNESIUM 1.9 mg/dL (1.8-2.4); POTASSIUM,K 3.5 mmol/L (3.5-5.1); PROTEIN TOTAL,TP 7.6 g/dL (6.4-8.2)
[2024-10-16] MEDS: Aspirin 325 MG Tab.EC PO ONE (07:22)
[2024-10-16] MEDS: tiZANidine 4 MG Tab PO ONE (07:23)
[2024-10-16] MEDS: guaiFENesin 600 MG Tab.ER PO ONE (07:23)
== END 2024-10-16 07:55 | disposition home or self-care (01) ==
LOC: MW.ED 04:41
DX: D72.10 Eosinophilia, unspecified (principal); R94.4 Abnormal results of kidney function studies; R00.1 Bradycardia, unspecified; Z91.041 Radiographic dye allergy status
CPT/HCPCS: 36415; 71045; 80053; 83690; 83735; 83880; 84484; 85025; 93005; 96374; 96375; 99285; A9270; J1100; J1885; J3490

== ENCOUNTER 2025-03-07 14:50 | Emergency (ER) | payer SELFPAY ==
[2025-03-07] MEDS: Ketorolac 30 MG/ML SDV IVPUSH STA (16:16)
[2025-03-07 16:24] LABS: BASOPHILS ABSOLUTE AUTO 0.03 K/uL (0.00-0.20); BASOPHILS PERCENT AUTO 0.6 % (0.0-1.0); EOSINOPHILS ABSOLUTE AUTO 1.02 K/uL (0.00-0.45); EOSINOPHILS PERCENT AUTO 19.5 % (0.0-6.0); HEMATOCRIT 42.1 % (42.0-52.0); HEMOGLOBIN 14.7 g/dL (14.0-18.0); IMMATURE GRAN ABSOLUTE AUTO 0.02 K/uL (0.00-0.05); IMMATURE GRAN PERCENT AUTO 0.4 % (0.0-0.4); LYMPHOCYTES ABSOLUTE AUTO 1.78 K/uL (1.00-4.80); MEAN CORPUSCULAR HEMOGLOBIN 28.3 pg (28.0-32.0); MEAN CORPUSCULAR HGB CONC 34.9 g/dL (32.0-36.0); MEAN PLATELET VOLUME 10.2 fL (9.4-12.4); MONOCYTES ABSOLUTE AUTO 0.35 K/uL (0.00-0.80); MONOCYTES PERCENT AUTO 6.7 % (0.0-8.0); NEUTROPHILS ABSOLUTE AUTO 2.03 K/uL (1.80-7.70); NEUTROPHILS PERCENT AUTO 38.8 % (41.0-71.0); PLATELET COUNT,PLT 206 K/uL (150-400); WHITE BLOOD CELL COUNT,WBC 5.23 K/uL (3.9-11.3)
[2025-03-07 16:27] LABS: APPEARANCE,URINE CLEAR; BILIRUBIN,URINE NEGATIVE (NEGATIVE); COLOR,URINE YELLOW; GLUCOSE,URINE NEGATIVE (NEGATIVE); KETONES,URINE NEGATIVE (NEGATIVE); LEUKOCYTE ESTERASE,URINE NEGATIVE (NEGATIVE); NITRITE,URINE NEGATIVE (NEGATIVE); OCCULT BLOOD,URINE NEGATIVE (NEGATIVE); PROTEIN,URINE NEGATIVE (NEGATIVE); UROBILINOGEN,URINE 0.2 EU/dL (<2.0)
[2025-03-07 16:44] LABS: A/G RATIO 1.2 (0.9-1.6); ACETAMINOPHEN <2.0 ug/mL; ALANINE AMINOTRANSFERASE,ALT 34 IU/L (14-63); ALBUMIN 4.5 g/dL (3.4-5.0); ALKALINE PHOSPHATASE 73 U/L (46-116); ASPARTATE AMNIOTRANSFERASE,AST 41 IU/L (15-37); BILIRUBIN TOTAL 0.5 mg/dL (0.2-1.0); BLOOD UREA NITROGEN,BUN 13 mg/dL (7.0-18.0); CALCIUM 9.2 mg/dL (8.5-10.1); CARBON DIOXIDE,CO2 27.4 mmol/L (21.0-32.0); CHLORIDE,CL 104 mmol/L (98-107); CREATININE 1.3 mg/dL (0.8-1.3); EST CRCL DRUG DOSING (CG) 86.38 mL/min; GLUCOSE RANDOM 89 mg/dL (74-106); POTASSIUM,K 3.9 mmol/L (3.5-5.1); PROTEIN TOTAL,TP 8.4 g/dL (6.4-8.2); SODIUM,NA 140 mmol/L (136-148)
[2025-03-07 16:47] LABS: ESTIMATED GFR 78 mL/min (>60); SALICYLATE < 0.2 mg/dL (0.0-20.0)
== END 2025-03-07 18:23 | disposition home or self-care (01) ==
LOC: MW.ED 14:50
DX: S03.41XA Sprain of jaw, right side, initial encounter (principal); K02.9 Dental caries, unspecified; Z91.048 Other nonmedicinal substance allergy status; Z75.8 Other problems related to medical facilities and other health care; X58.XXXA Exposure to other specified factors, initial encounter
CPT/HCPCS: 36415; 70486; 80053; 80143; 80179; 81003; 85025; 96374; 99284; J1885

== ENCOUNTER 2025-10-05 11:58 | Emergency (ER) | payer OTHER | END 2025-10-05 14:25 | disposition home or self-care (01) | LOC: MW.ED 11:58 | DX: M25.571 Pain in right ankle and joints of right foot (principal); M25.562 Pain in left knee; Z75.3 Unavailability and inaccessibility of health-care facilities; Z59.82 Transportation insecurity; Z91.041 Radiographic dye allergy status; V89.2XXA Person injured in unspecified motor-vehicle accident, traffic, initial encounter | CPT/HCPCS: 73562; 73610; 99283; A9270 ==